=== PATIENT | female | born 1955 | race Two or more races ===

== ENCOUNTER → 2017-05-31 | Outpatient (CLI) | payer OTHER ==
[~2017-05-31] MED LIST: [UNRECOGNIZED DRUG - CODE] PO
--- NOTE | 2017-05-31 12:07 | HKNOTE ---
DATE OF SERVICE: 05/31/2017 CHIEF COMPLAINT: Right knee pain. HISTORY OF PRESENT ILLNESS: This is a 62-year-old female complaining of right knee pain. The pain is constant. There are no alleviating factors. She uses a cane for ambulation. The pain has been worsening over the last 3 years. She recently went to her primary care physician and had a right kn ee corticosteroid injection 2 weeks ago. She has obtained some pain relief from the injection. She takes ibuprofen for pain control. She also has been prescribed [place]. She denies any locking, cat jw. She has instability. She has difficulty ambulating and navigating stairs. She denies any g roin or back pain. GAIT: Antalgic gait, reciprocal gait pattern. RIGHT KNEE EXAMINATION: Neutral alignment. Tender over the medial and lateral joint lines, -10 to 115 degrees range of motion, stable to varus valgus stress, negative [place], negative anterior draw er. MOTOR STRENGTH: 5/5 hamstrings, quadriceps, tibialis anterior, gastrocsoleus. MRI RIGHT KNEE: There is tricompartmental arthritis with full thickness cartilage loss. The crucia te and collateral ligaments are intact. X-RAYS RIGHT KNEE: There is tricompartmental osteoarthritis of the right knee with loss of joint sp jovanni and peripheral osteophytes. There is subchondral sclerosis. There are no fractures or dislocat ions. IMPRESSION: A 62-year-old female with right knee osteoarthritis. PLAN: I discussed treatment options with the patient. I discussed weight loss, use of pain medicat ions as well as assistive devices. She recently had a corticosteroid injection by her primary care doctor 2 weeks ago. She was advised that if she continues to have pain, she will follow up with an injection of Monovisc in the future. I also discussed possible need for knee replacement. She will follow up in 3 months. Dictated By: MAKI DRAPER/REGGIE Conf#: [id number] DID#: [id number]
--- NOTE | 2017-06-01 11:07 | RADRPT ---
PROCEDURE: XR Knee. CLINICAL INDICATION: Knee pain TECHNIQUE: Three views of the right knee are available for review. COMPARISON: None available FINDINGS: Marginal osteophyte formation and subchondral sclerosis seen at all 3 compartments. Severe narrowin g is seen at the lateral femorotibial compartment and medial femorotibial compartment. Mild narrowi ng is seen at the patellofemoral compartment. No acute osseous abnormality. Large joint effusion. IMPRESSION: 1. Tricompartmental arthrosis, severe narrowing at the lateral and medial femorotibial compartments . 2. Subchondral lucencies are seen representing either subchondral cystic change versus erosions. 2. Large knee joint effusion. Clinical correlation or fluid sampling are suggested to exclude an un derlying inflammatory etiology. RPTAT: HH .Kofi Horn MD, Date Time Electronically viewed and signed by .Kofi Horn MD, on 06/01/2017 11:06 .d/
== END | disposition home or self-care (01) ==
LOC: HKI 10:06
PROVIDERS: ATTEND Orthopaedic Surgery Adult Reconstructive Orthopaedic Surgery
DX: M17.11 Unilateral primary osteoarthritis, right knee (principal)
CPT/HCPCS: 73564; Z7500; G0463